=== PATIENT | male | born 1995 ===

== ENCOUNTER 2017-07-20 09:57 | Emergency (ER) | payer BC ==
[2017-07-20] MEDS ORDERED: Amoxicillin 500 MG Cap ONE (10:44)
--- NOTE | 2017-07-20 10:45 | EDM.PDOC ---
Scribed by Marian Covington 07/20/17 1045 for Kiara Snachez NP ED HPI GENERAL MEDICAL PROBLEM - General Chief Complaint: ENT Problem Stated Complaint: ABSCESS [id number] Time Seen by Provider: 07/20/17 10:20 Source of Information: Reports: Patient, RN, RN Notes Reviewed History Limitations: Reports: No Limitations - History of Present Illness INITIAL COMMENTS - FREE TEXT/NARRATIVE: Patient presents to ER with complaint of abscess to the right side of face. States he began feeling pain on Thursday. Thursday was somewhat better. Today much more swelling, pain comes and goes. Rates pain 4-5/10. He has had sweating , nausea, dehydration, and shortness of breath at times. No fever, chills, vomiting, diarrhea or chest pain. Onset: Gradual Duration: Getting Worse Location: Reports: Face Quality: Reports: Ache Severity: Moderate Improves with: Reports: None Worsens with: Reports: None Associated Symptoms: Reports: No Other Symptoms Right Lower Face Pain Score (Numeric/FACES): 5 - Related Data Allergies Allergy/AdvReac Type Severity Reaction Status Date / Time No Known Allergies Allergy Verified 07/20/17 10:13 Home Meds: Home Meds . [No Known Home Meds] 07/20/17 [History] Past Medical History - Past Health History Medical/Surgical History: Denies Medical/Surgical History Social & Family History - Tobacco Use Smoking Status *Q: Current Every Day Smoker Years of Tobacco use: 1 Packs/Tins Daily: 0.1 - Caffeine Use Caffeine Use: Reports: Coffee, Soda - Alcohol Use Days Per Week of Alcohol Use: 7 Number of Drinks Per Day: 2 Total Drinks Per Week: 14 - Recreational Drug Use Recreational Drug Use: Yes Recreational Drug Type: Reports: Marijuana/Hashish ED ROS GENERAL - Review of Systems Review Of Systems: ROS reveals no pertinent complaints other than HPI. ED EXAM, GENERAL - Physical Exam Exam: See Below Exam Limited By: No Limitations General Appearance: Alert, WD/WN, No Apparent Distress Eye Exam: Bilateral Eye: EOMI, Normal Inspection Ears: Normal External Exam, Normal Canal, Hearing Grossly Normal, Normal TMs Nose: Normal Inspection, Normal Mucosa, No Blood Throat/Mouth: Normal Inspection, Normal Lips, Normal Teeth, Normal Gums, Normal Oropharynx, Normal Voice, No Airway Compromise Head: Atraumatic, Normocephalic, Other (right lower jaw swelling) Neck: Other (swelling right submental +2. ) Respiratory/Chest: No Respiratory Distress, Lungs Clear, Normal Breath Sounds, No Accessory Muscle Use, Chest Non-Tender Cardiovascular: Normal Peripheral Pulses, Regular Rate, Rhythm, No Edema, No Gallop, No JVD, No Murmur, No Rub GI/Abdominal: Normal Bowel Sounds, Soft, Non-Tender, No Organomegaly, No Distention, No Abnormal Bruit, No Mass (Male) Exam: Deferred Rectal (Males) Exam: Deferred Back Exam: Normal Inspection, Full Range of Motion, NT Extremities: Normal Inspection, Normal Range of Motion, Non-Tender, Normal Capillary Refill, No Pedal Edema Neurological: Alert, Oriented, CN II-XII Intact, Normal Cognition, Normal Gait, Normal Reflexes, No Motor/Sensory Deficits Psychiatric: Normal Affect Skin Exam: Warm, Dry, Intact, Normal Color Lymphatic: Other (see neck exam) Course - Vital Signs Last Recorded V/S: Last Vital Signs Temp 97.3 F 07/20/17 10:09 Pulse 90 07/20/17 10:09 Resp 16 07/20/17 10:09 BP 143/74 H 07/20/17 10:09 Pulse Ox 100 07/20/17 10:09 - Orders/Labs/Meds Meds: Medications Discontinued Medications Generic Name Dose Route Start Last Admin Trade Name Mirna PRN Reason Stop Dose Admin Amoxicillin 1,000 mg 07/20/17 10:34 Amoxil PO 07/20/17 10:35 ONETIME ONE Departure - Departure Time of Disposition: 10:43 Disposition: Home, Self-Care 01 Condition: Fair Clinical Impression: Dental abscess - Discharge Information Instructions: Dental Abscess, [id number], Skin Abscess, [id number] Forms: ED Department Discharge Additional Instructions: Ibuprofen as directed every 8 hours for pain as needed Tylenol as directed every 4 hours for pain as needed Drink plenty of water Follow up with Dental Follow up with your primary care facility I have read and agree with the documentation that has been completed regarding this visit. By signing this record, I attest that the documentation was completed in my physical presence and is an accurate record of the encounter.
[2017-07-20] MEDS: Amoxicillin 500 MG Cap PO ONE ×2 (10:47)
== END 2017-07-20 10:55 | disposition home or self-care (01) ==
LOC: DL.ED 09:57
DX: K04.7 Periapical abscess without sinus (principal); F17.210 Nicotine dependence, cigarettes, uncomplicated
CPT/HCPCS: 99282; A9270